=== PATIENT | female | born 1965 | race Caucasian/White ===

== ENCOUNTER 2016-08-01 17:21 | Emergency (ER) | payer BC, OTHER ==
[~2016-08-01] VITALS: Ht 165.1 cm; Wt 86.4 kg
[~2016-08-01 17:21] MED LIST: FLEXERIL 1010 MG/TAB PO; KETOROLAC10 MG PO
[2016-08-01 17:27] VITALS: BP 143/80; TEMP 98.3
[2016-08-01] MEDS ORDERED: NORCO 325 MG-51 TAB PO (18:51)
[2016-08-01 19:05] VITALS: PULSE 84
== END 2016-08-01 19:04 | disposition home or self-care (01) ==
LOC: COL.ER 17:21
DX: M25.572 Pain in left ankle and joints of left foot (principal); M25.472 Effusion, left ankle; M79.662 Pain in left lower leg

== ENCOUNTER → 2017-01-22 | Outpatient (REF) ==
[~2017-01-22] MED LIST changes: +NORCO 325 MG-51 TAB PO
[2017-01-22 21:38] LABS: CHLAMYDIA/TRACH by PCR Female NOT DETECTED; NEISSERIA GON by PCR Female NOT DETECTED
== END ==
LOC: ZLAB.WCH 18:22
PROVIDERS: Nurse Practitioner Family
DX: Z01.89 Encounter for other specified special examinations (principal)

== ENCOUNTER → 2017-05-26 | Outpatient (REF) ==
[2017-05-26 18:25] LABS: C-REACTIVE PROTEIN 0.6 mg/dL (0.0-0.9)
[2017-05-26 18:56] LABS: THYROID STIMULATING HORMONE 2.46 uIU/mL (0.465-4.680)
== END ==
LOC: ZLAB.WCH 18:02
PROVIDERS: Nurse Practitioner Family
DX: Z01.89 Encounter for other specified special examinations (principal)

== ENCOUNTER 2017-05-27 13:17 | Emergency (ER) | payer BC, OTHER ==
[~2017-05-27] VITALS: Ht 165.1 cm; Wt 84.1 kg
[2017-05-27 15:49] VITALS: BP 146/79; PULSE 92; TEMP 97.9
== END 2017-05-27 15:49 | disposition home or self-care (01) ==
LOC: COL.ER 13:17
DX: S46.912A Strain of unspecified muscle, fascia and tendon at shoulder and upper arm level, left arm, initial encounter (principal); X50.1XXA Overexertion from prolonged static or awkward postures, initial encounter; Z88.8 Allergy status to other drugs, medicaments and biological substances

== ENCOUNTER → 2017-12-31 | Outpatient (REF) ==
[2017-12-31 09:41] LABS: THYROID STIMULATING HORMONE 3.94 uIU/mL (0.465-4.680)
== END ==
LOC: ZLAB.WCH 08:47
PROVIDERS: Family Medicine
DX: Z01.89 Encounter for other specified special examinations (principal)

== ENCOUNTER → 2018-08-31 | Outpatient (REF) | LOC: ZLAB.WCH 14:11 | DX: Z01.89 Encounter for other specified special examinations (principal) ==